=== PATIENT | female | born 1980 | race Caucasian/White ===

== ENCOUNTER 2018-11-26 09:26 | Outpatient (CLI) | payer OTHER ==
--- NOTE | 2018-11-26 13:04 | MRI ---
MRI THORACIC SPINE WITHOUT CONTRAST: History M54.6. Pain. COMPARISON: None. FINDINGS: The aortic contour is nonaneurysmal. No retroperitoneal periaortic adenopathy. There is a focal are a of likely some sebaceous cyst in the superficial soft tissues of the mid thoracic spine. The cord signal is normal. There is no neural foraminal or spinal canal narrowing throughout the thoracic spine. Disk spaces ar e well maintained. No Schmorl's nodes. No edema of the vertebrae. No posterior element edema. The spinous processes are intact. No paraspinal muscle edema. IMPRESSION: Normal examination of the thoracic spine. POS: [facility]
--- NOTE | 2018-11-26 13:12 | MRI ---
CERVICAL SPINE MRI NONCONTRAST: INDICATION: Cervical radiculopathy. FINDINGS: There is no acute marrow edema. No compression fracture or significant subluxation. There is mild r eversal of normal cervical curvature. Mild degenerative hypertrophy is seen at the C1-2 level. C2-3: No significant central canal or foraminal stenosis. C3-4: No significant central canal or neural foraminal stenosis. C4-5: There is a disk-osteophyte with slight effacement of the ventral thecal sac more pronounced in the left of midline, although no high-grade central canal or neural foraminal stenosis. C5-6: Broad-based disk-osteophyte is present, asymmetric to the left with mild central canal stenosi s and mild ventral left hemicord flattening. There is moderate left and mild right neural foraminal narrowing. C6-7: No significant central canal or foraminal stenosis. C7-T1: No significant central canal or neural foraminal stenosis. Evaluation of the cervical spinal cord reveals no intrinsic cord signal abnormality of significance o r evidence of an expansile process. Note is made that there is patient motion which does distort the cord anatomy and thus limits assessment. IMPRESSION: Degenerative change of the cervical spine most pronounced at the mid to lower aspect as discussed abo ve. This does result in mild effacement of the cervical spinal cord with associated central canal an d foraminal narrowing. POS: [facility]
== END 2018-11-26 09:27 | disposition home or self-care (01) ==
LOC: BICMRI 09:26
PROVIDERS: ATTEND Internal Medicine
DX: M47.22 Other spondylosis with radiculopathy, cervical region (principal); M48.02 Spinal stenosis, cervical region; M47.24 Other spondylosis with radiculopathy, thoracic region; R07.9 Chest pain, unspecified
CPT/HCPCS: 72141; 72146